=== PATIENT | male | born 1985 | race Caucasian/White ===

== ENCOUNTER → 2019-09-05 | Outpatient (CLI) | payer BC ==
--- NOTE | 2019-09-10 00:06 | SLEEPHOME ---
DATE OF PROCEDURE: 09/05/2019 ORDERED BY: LOUIS Zhang Diagnostic home sleep testing was performed due to concern for the obstructive sleep apnea syndrome in this patient with excessive somnolence and nonrestorative sleep. 9 hours and 59 minutes of data were reviewed. There were 9 hours and 34 minutes marked as time in bed. During the interval marked time in bed, there were only five hypopneic respiratory events identified of 10 seconds in duration or greater for a respiratory event index of 0.5. Baseline pulse rate 76, pulse rate ranged 46-175. Baseline saturation 96%. Saturations fell only to 91% and testing was performed in both the supine and nonsupine positions. IMPRESSION: Normal diagnostic home sleep test with no evidence to support the obstructive sleep apnea syndrome seen.
== END ==
LOC: M SLEEP HO 13:52
PROVIDERS: ATTEND Nurse Practitioner Family
DX: R40.0 Somnolence (principal)

== ENCOUNTER 2022-03-17 09:58 | Inpatient (IN) | payer BC ==
[~2022-03-17] VITALS: Ht 175.3 cm; Wt 91.2 kg
[2022-03-17] MEDS ORDERED: DEXTROAMP-AMPHETAMIN (10:15)
[2022-03-17] MEDS ORDERED: MODA200T15 PO (10:15)
[2022-03-17 10:45] LABS: HEMATOCRIT 44.6 % (42.0-52.0); HEMOGLOBIN 14.9 g/dl (13.5-17.5); MEAN CORPUSCULAR HEMOGLOBIN 30.3 pg (27.0-33.0); MEAN CORPUSCULAR HGB CONC 33.4 g/dl (32.0-36.5); MEAN CORPUSCULAR VOLUME 90.8 fl (80.0-96.0); PLATELET COUNT, AUTOMATED 277 10^3/uL (150-450); RED BLOOD COUNT 4.91 10^6/uL (4.30-6.10); WHITE BLOOD COUNT 8.4 10^3/uL (4.0-10.0)
[2022-03-17 11:27] LABS: ACETAMINOPHEN LEVEL < 2.0 UG/ML (10.0-30.0); ALBUMIN 4.6 GM/DL (3.2-5.2); ALT/SGPT 26 U/L (12-78); BILIRUBIN,DIRECT 0.1 MG/DL (0.0-0.2); BILIRUBIN,TOTAL 0.6 MG/DL (0.2-1.0); BLOOD UREA NITROGEN 10 MG/DL (7-18); CALCIUM LEVEL 10.1 MG/DL (8.5-10.1); CARBON DIOXIDE LEVEL 24 MEQ/L (21-32); CHLORIDE LEVEL 106 MEQ/L (98-107); CREATININE FOR GFR 0.92 MG/DL (0.70-1.30); ETHYL ALCOHOL (ETHANOL) < 0.003 % (0.000-0.010); GLOMERULAR FILTRATION RATE > 60.0 (>60); GLUCOSE, FASTING 97 MG/DL (70-100); POTASSIUM SERUM 4.5 MEQ/L (3.5-5.1); SALICYLATE LEVEL < 1.7 MG/DL (5.0-30.0); SODIUM LEVEL 139 MEQ/L (136-145); TOTAL PROTEIN 7.7 GM/DL (6.4-8.2)
[2022-03-17 11:31] LABS: RSV AMPLIFICATION NEGATIVE (NEGATIVE)
[2022-03-17 12:26] LABS: AMPHETAMINES LEVEL URINE POSITIVE (NEGATIVE); BARBITURATES URINE NEGATIVE (NEGATIVE); BENZODIAZEPINES URINE NEGATIVE (NEGATIVE); CANNABINOIDS URINE NEGATIVE (NEGATIVE); COCAINE METABOLITE URINE NEGATIVE (NEGATIVE); METHADONE URINE NEGATIVE (NEGATIVE); OPIATES URINE NEGATIVE (NEGATIVE); PHENCYCLIDINE URINE NEGATIVE (NEGATIVE)
[2022-03-17] MEDS ORDERED: ADDE20TA PO (12:37)
[2022-03-17] MEDS ORDERED: ERGO500029 PO (13:33)
[2022-03-17] MEDS ORDERED: HOME MED LIST COMPLETE! XX SCH (13:35)
[2022-03-17] MEDS ORDERED: MAALOX 30 ML SUSP *UDC PO PRN (14:10)
[2022-03-17] MEDS ORDERED: MOM 30ML SUSPENSION UDC PO PRN (14:10)
[2022-03-17] MEDS: MODAFINIL 100 MG TABLET PO SCH (15:00)
[2022-03-17] MEDS: NICOTINE 21MG/24HR 1 EA TRANSDERMAL TD SCH (15:14)
[2022-03-17] MEDS: ADDERALL 5 MG TAB PO SCH (15:43)
[2022-03-17] MEDS ORDERED: diazePAM 5MG TABLET PO ONE (17:20)
[2022-03-17 17:30] VITALS: BP 116/57
[2022-03-17] MEDS ORDERED: OLANZapine ORAL DISINTEGRATING TAB 5MG PO ONE (18:40)
[2022-03-17] MEDS: hydrOXYzine 50 MG TAB PO PRN (18:46)
[2022-03-17] MEDS: IBUPROFEN 400MG TAB PO PRN (19:17)
[2022-03-18 06:31] VITALS: BP 116/54
[2022-03-18] MEDS: NICOTINE 21MG/24HR 1 EA TRANSDERMAL TD SCH (09:36)
[2022-03-18] MEDS: ADDERALL 5 MG TAB PO SCH ×2 (09:36→15:01)
[2022-03-18] MEDS: MODAFINIL 100 MG TABLET PO SCH ×2 (10:32→15:01)
[2022-03-18 17:45] VITALS: BP 118/70
[2022-03-18] MEDS: traZODone 50 MG TAB PO PRN (22:45)
[2022-03-19 06:55] VITALS: BP 101/55
[2022-03-19] MEDS: NICOTINE 21MG/24HR 1 EA TRANSDERMAL TD SCH (08:14)
[2022-03-19] MEDS: MODAFINIL 100 MG TABLET PO SCH ×2 (08:15→13:27)
[2022-03-19] MEDS: ADDERALL 5 MG TAB PO SCH ×2 (08:16→15:00)
[2022-03-19] MEDS: IBUPROFEN 400MG TAB PO PRN (08:56)
[2022-03-19] MEDS ORDERED: VITAMIN D 50,000 UNITS CAPSULE (ERGOCALCIFEROL 1.25MG) PO SCH (09:00)
[2022-03-19] MEDS: hydrOXYzine 50 MG TAB PO PRN (15:28)
[2022-03-19 17:33] VITALS: BP 123/71
[2022-03-19] MEDS: traZODone 50 MG TAB PO PRN (20:40)
[2022-03-20 06:42] VITALS: BP 106/54
[2022-03-20] MEDS: NICOTINE 21MG/24HR 1 EA TRANSDERMAL TD SCH (08:33)
[2022-03-20] MEDS: MODAFINIL 100 MG TABLET PO SCH ×2 (08:35→15:22)
[2022-03-20] MEDS: ADDERALL 5 MG TAB PO SCH ×2 (08:36→15:22)
[2022-03-20] MEDS: hydrOXYzine 50 MG TAB PO PRN (13:59)
[2022-03-20 18:33] VITALS: BP 140/72
[2022-03-20] MEDS: traZODone 50 MG TAB PO PRN (20:24)
[2022-03-21 07:18] VITALS: BP 141/69
[2022-03-21] MEDS: NICOTINE 21MG/24HR 1 EA TRANSDERMAL TD SCH (08:00)
[2022-03-21] MEDS: ADDERALL 5 MG TAB PO SCH ×2 (08:01→13:58)
[2022-03-21] MEDS: MODAFINIL 100 MG TABLET PO SCH ×2 (08:01→13:34)
[2022-03-21 18:23] VITALS: BP 157/78
[2022-03-21] MEDS: hydrOXYzine 50 MG TAB PO PRN (18:40)
[2022-03-21] MEDS: traZODone 50 MG TAB PO PRN (20:40)
[2022-03-22 06:59] VITALS: BP 124/60
[2022-03-22] MEDS: ADDERALL 5 MG TAB PO SCH (08:30)
[2022-03-22] MEDS: MODAFINIL 100 MG TABLET PO SCH (08:30)
[2022-03-22] MEDS: NICOTINE 21MG/24HR 1 EA TRANSDERMAL TD SCH (08:31)
[2022-03-22] MEDS ORDERED: TRAZ-252 PO (08:50)
[2022-03-22] MEDS ORDERED: NICO21PAT TD (08:50)
[2022-03-22] MEDS ORDERED: Amphetamine/Dextroamphetamine PO (08:50)
[2022-03-22] MEDS ORDERED: HYDR50TA70 PO (08:50)
[2022-03-22] MEDS ORDERED: MODA100T13 PO (08:50)
[2022-03-22] MEDS: IBUPROFEN 400MG TAB PO PRN (09:39)
== END 2022-03-22 10:55 | disposition home or self-care (01) | DRG 751 ==
LOC: M ED 09:58 → M ED INP 14:06 → M PSY 16:39
PROVIDERS: ADMIT Student in an Organized Health Care Education/Training Program; ATTEND Student in an Organized Health Care Education/Training Program
DX: F33.2 Major depressive disorder, recurrent severe without psychotic features (principal); F41.1 Generalized anxiety disorder; F17.290 Nicotine dependence, other tobacco product, uncomplicated; Z63.0 Problems in relationship with spouse or partner; F60.89 Other specific personality disorders; F42.9 Obsessive-compulsive disorder, unspecified; Z79.899 Other long term (current) drug therapy